=== PATIENT | male | born 1945 | race Caucasian/White ===

== ENCOUNTER → 2016-11-24 | Outpatient (CLI) | payer MEDICARE, OTHER ==
--- NOTE | 2016-11-24 15:33 | REP ---
Clinical: Pain. Technique: AP, lateral, bilateral oblique views of the right wrist. 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 The carpal bones and carpometacarpal joints appear normal. There is no evidence for acute fracture dislocation. Surrounding soft tissues are grossly normal. 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 There there is no evidence for acute fracture or dislocation. Signed by Dom Riddle MD 11/24/2016 03:24 P
== END ==
LOC: M LRY 14:48
PROVIDERS: ATTEND Nurse Practitioner Family
DX: M19.031 Primary osteoarthritis, right wrist (principal)

== ENCOUNTER → 2016-11-24 | Outpatient (REF) | payer OTHER ==
[2016-11-24 20:39] LABS: ALBUMIN 3.3 GM/DL (3.2-5.2); ALBUMIN/GLOBULIN RATIO 0.89 (1.00-1.93); ALKALINE PHOSPHATASE 58 U/L (45-117); ALT/SGPT 21 U/L (12-78); ANION GAP 5 MEQ/L (8-16); AST/SGOT 16 U/L (15-37); BILIRUBIN,TOTAL 1.1 MG/DL (0.2-1.0); BLOOD UREA NITROGEN 11 MG/DL (7-18); CALCIUM LEVEL 8.4 MG/DL (8.8-10.2); CARBON DIOXIDE LEVEL 28 MEQ/L (21-32); CHLORIDE LEVEL 105 MEQ/L (98-107); CREATININE FOR GFR 0.82 MG/DL (0.70-1.30); GLOMERULAR FILTRATION RATE > 60.0 (>42); GLUCOSE, FASTING 93 MG/DL (83-110); POTASSIUM SERUM 4.1 MEQ/L (3.5-5.1); SODIUM LEVEL 138 MEQ/L (136-145); URIC ACID 4.7 MG/DL (3.5-7.2)
== END ==
LOC: M SFHCLERA 15:40
PROVIDERS: ATTEND Nurse Practitioner Family
DX: M25.531 Pain in right wrist (principal)

== ENCOUNTER → 2020-05-07 | Outpatient (CLI) | payer OTHER ==
--- NOTE | 2020-05-07 13:50 | REP ---
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 COMPARISON: 04/20/2012 TECHNIQUE: PA and lateral FINDINGS: Two views show the lungs hyperinflated with flattened diaphragms. There is blunting of CP angles on the frontal and lateral views with inversion of the diaphragms consistent with significant hyperinflation from the COPD emphysematous changes are most pronounced in the mid and upper lung zones. There is bilateral apical pleural scarring and some minor basilar fibrotic change but no definite effusion, dense consolidation or parenchymal mass pulmonary arteries symmetric prominent centrally suggesting pulmonary artery hypertension aorta is mildly tortuous, grossly unchanged. Airway midline. No widening of the mediastinum. Bony thorax shows some degenerative changes in mid lower thoracic spine without acute compression deformity or destructive lesions. IMPRESSION: 1. Hyperinflation with COPD bullous emphysematous changes which are greatest in the mid and upper lung zones and some minor basilar fibrosis. CP angles are blunted and diaphragms inverted inferiorly due to this severe hyperinflation. There is also apical pleural scarring and thickening unchanged. No focal lung mass or acute infiltrate. 2. No cardiomegaly or edema. Prominent miguel in a symmetric fashion consistent with pulmonary artery hypertension. <Electronically signed by Dixon Zhou > 05/07/20 [id number]
== END ==
LOC: M RAD 12:34
PROVIDERS: ATTEND Internal Medicine Pulmonary Disease
DX: J62.0 Pneumoconiosis due to talc dust (principal); J43.9 Emphysema, unspecified